=== PATIENT | male | born 1965 | race Caucasian/White ===

== ENCOUNTER 2023-03-04 22:54 | Emergency (ER) | payer MEDICARE, SELFPAY ==
[2023-03-04 22:57] VITALS: BP 160/97; PULSE 71; RESP 20; TEMP 36.9; O2SAT 99
[2023-03-04 23:47] VITALS: BP 151/92; PULSE 73; RESP 16
[2023-03-04] MEDS: diphenhydrAMINE HCl INJ 50 MG/ML VIAL 25 MG IV PUSH (23:47)
[2023-03-04] MEDS: FAMOTIDINE 20 MG/2 ML VIAL IV PUSH (23:47)
[2023-03-04 23:48] VITALS: PULSE 70; RESP 13; O2SAT 98
[2023-03-04] MEDS: methylPREDNISolone SOD SUCC 125 MG VIAL IV PUSH (23:48)
[2023-03-04 23:55] VITALS: BP 135/93; PULSE 67; RESP 16; O2SAT 98
[2023-03-05] VITALS (8 sets, daily range): BP systolic 134–146; BP diastolic 91–95; PULSE 66–74; RESP 13–19; O2SAT 96–98
--- NOTE | 2023-03-05 00:21 | ED.ALLEREA ---
HPI - Allergic Reaction General Chief complaint: Allergic Reaction Stated complaint: facial swelling, eye itching, eye pain Time Seen by Provider: 03/04/23 23:23 History of Present Illness HPI narrative: This is a 58-year-old male, with no significant past medical history, presents to the emergency department complaining of eye itching and swelling. The patient states approximately an hour prior to arrival, he let his 2 outdoor cats and home and within 20 minutes noted bilateral eye itching and swelling. This was associated with some blurred vision but no loss of vision. He states the eye swelling has improved slightly since arriving here. He has no complaints at this time. Related Data Allergies Allergy/AdvReac Type Severity Reaction Status Date / Time No Known Allergies Allergy Verified 03/04/23 23:24 Review of Systems Review of Systems: CONSTITUTIONAL: Denies fever, chills, or sweats. EYES: Bilateral eye swelling and blurred vision, mild right eye redness denies visual changes, or discharge. CARDIOVASCULAR: Denies chest pain, palpitations, or edema. RESPIRATORY: Denies cough or dyspnea. GASTROINTESTINAL: Denies abdominal pain, nausea, vomiting, or diarrhea. GENITOURINARY: Denies dysuria or hematuria. SKIN: Denies rash or itching. MUSCULOSKELETAL: Denies back pain, joint pain, or myalgia. NEUROLOGIC: Denies headache, numbness, dizziness, or weakness. PSYCHIATRIC: Denies anxiety or depression. PMFSH Past Medical History Medical History No significant past medical history Surgical History Surgical History No significant past surgical history Social History Social History Smoking status: Never smoker Alcohol intake: never Substance use: never Exam Narrative: GENERAL: Well-appearing, well-nourished, and in no acute distress. HEAD: Normocephalic, atraumatic. EYES: PERRLA and EOMI. Mild bilateral palpebral conjunctival cobblestoning. Mild right scleral injection. ENT: Nares clear, no rhinorrhea or epistaxis. Mucous membranes moist. Oropharynx without tonsillar hypertrophy exudate or other lesions. NECK: Supple. No adenopathy or masses. No carotid bruits or JVD. No stridor CHEST: Clear to auscultation. No respiratory distress. No wheezes rales or rhonchi HEART: Regular rate and rhythm. No murmur heard. Normal peripheral pulses. SKIN: Warm, dry, no rash. NEURO: No focal deficits. Alert and oriented x3. PSYCH: Normal mood and affect. Course Course Emergency Course: 00:31 - Fluorescein staining of the eyes is not concerning for corneal abrasion. 00:50 - On re-evaluation, the patient states his symptoms have improved. Will discharge with steroids, antihistamines and recommendation for primary care follow-up. Discussed return and emergency precautions including signs/symptoms of airway compromise anaphylaxis. The patient voiced understanding and is comfortable with the plan. All questions answered to his satisfaction. Vital Signs Vital signs: Vital Signs Temperature 98.4 F 03/04/23 22:57 Pulse Rate 71 03/04/23 22:57 Respiratory Rate 20 03/04/23 22:57 Blood Pressure 160/97 H 03/04/23 22:57 Pulse Oximetry 99 03/04/23 22:57 Oxygen Delivery Room Air 03/04/23 22:57 Temperature 98.4 F 03/04/23 22:57 Pulse Rate 67 03/05/23 00:46 Respiratory Rate 13 03/05/23 00:46 Blood Pressure 146/91 H 03/05/23 00:46 Pulse Oximetry 96 03/05/23 00:46 Oxygen Delivery Room Air 03/04/23 22:57 MDM - Allergic Reaction MDM Narrative Medical decision making narrative: Plan: Fluorescein staining, antihistamines, recent Differential Diagnosis Differential diagnosis: Likely allergic reaction and other (Allergic conjunctivitis, corneal abrasion, other) Discharge Plan Discharge Clinical Impression: Acute
== END 2023-03-05 00:52 | disposition home or self-care (01) ==
PROVIDERS: Emergency Provider Preventive Medicine Aerospace Medicine
DX: H10.13 Acute atopic conjunctivitis, bilateral (principal)
CPT/HCPCS: 96374; 96375; 99284; J1200; J2930